=== PATIENT | female | born 1945 | race Caucasian/White ===

== ENCOUNTER 2020-10-26 11:29 | Outpatient (CLI) | payer MEDICARE ==
--- NOTE | 2020-10-26 12:20 | XRAY Report ---
PROCEDURE: Hand 3 View BILAT INDICATIONS: BILAT HAND PAIN TECHNIQUE: 3 views of both hands acquired COMPARISON: None FINDINGS: Bones: In both hands the thumb interphalangeal joint, the DIP joints, and the PIP joints of the lauryn le finger demonstrate joint space loss, and central erosions with a goal wing appearance. There is no osteopenia or marginal erosions. No fractures or dislocations. No suspicious bony lesions. Soft tissues: No suspicious soft tissue calcifications. 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 Reviewed by: Josh Larry on 10/26/2020 12:18 PM PDT Approved by: Josh Larry on 10/26/2020 12:18 PM PDT Station ID: [id number]
== END 2020-10-26 11:30 | disposition home or self-care (01) ==
LOC: DI 11:29
PROVIDERS: ATTEND Physician Assistant
DX: M19.042 Primary osteoarthritis, left hand (principal); M19.041 Primary osteoarthritis, right hand